=== PATIENT | female | born 1975 | race Asian ===

== ENCOUNTER 2025-10-27 19:54 | Emergency (ER) | payer OTHER, SELFPAY ==
[2025-10-27 19:59] VITALS: BP 155/86
[2025-10-27 20:49] VITALS: BMI 31.0
[2025-10-27 21:00] VITALS: BP 137/100
[2025-10-27 21:27] LABS: Hematocrit 29.1 % (37.0-47.0); Hemoglobin 9.6 g/dL (12.0-16.0); Mean Corp Hgb Conc. 33.0 g/dL (33.0-37.0); Mean Corpuscular Volume 82.9 fL (81.0-99.0); Nucleated Red Blood Cells % 0 %; Platelet Count 409 10^3/uL (130-400); Red Cell Dist. Width 16.6 % (11.5-14.5)
[2025-10-27 21:38] LABS: APTT 29.2 Sec (23.4-35.0)
[2025-10-27 21:41] LABS: INR 1.03; PT 13.3 Sec (11.4-14.6)
[2025-10-27 21:50] LABS: Troponin I < 0.012 ng/ml
[2025-10-27 22:00] VITALS: BP 127/94
[2025-10-27 22:04] LABS: ALT (SGPT) 17 U/L (0-35); AST (SGOT) 21 U/L (14-36); Albumin 3.9 g/dl (3.5-5.0); Alkaline Phosphatase 85 U/L (38-126); Blood Urea Nitrogen 9 mg/dl (7-17); Calcium 9.4 mg/dl (8.4-10.2); Carbon Dioxide 29 mmol/L (22-30); Chloride 104 mmol/L (98-107); Estimated Creatinine Clearance 102 ml/min; Glucose 100 mg/dl (70-99); Potassium 3.6 mmol/L (3.5-5.1); Sodium 136 mmol/L (135-145); Total Protein 6.6 g/dl (6.3-8.2); eGFR > 60.00
[2025-10-27 23:00] VITALS: BP 121/95
[2025-10-28] VITALS: BP 129/82
--- NOTE | 2025-10-28 00:50 | ED.GENMED ---
History of Present Illness
General
Chief Complaint: Numbness
Source: patient and spouse
Time Seen by Provider: 10/27/25 20:59
History of Present Illness
History of Present Illness:
Note:
CHIEF COMPLAINT(S)
Numbness in the upper extremities.
HISTORY OF PRESENT ILLNESS
The patient is a 50-year-old female with a history of breast cancer who presents with numbness in her face. She has undergone multiple brain surgeries and is currently receiving chemotherapy. The onset of numbness occurred upon awakening this
morning and persisted throughout the day, though it has since improved. The patient describes her usual tingling sensation in the same distribution but felt more numb today, prompting her oncologist to advise a visit to the emergency room. She
denies any fevers, vision changes, or motor weakness in the limbs. Her last chemotherapy session was two weeks ago, which she tolerated well.
The patient has a history of four brain surgeries due to metastatic breast cancer, with Dr. Rincon as the neurosurgeon and Dr. Priscilla Delarosa as the oncologist. She underwent radiation therapy one year ago and has experienced radiation necrosis in the
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 She recently returned from a trip to [place].
PAST MEDICAL AND SURGICAL HISTORY
- Breast cancer with brain metastases.
- Multiple brain surgeries.
- Radiation therapy.
- Chemotherapy.
ADDITIONAL HISTORY OBTAINED FROM SOURCE OTHER THAN THE PATIENT
Per the patient�s oncologist, she was advised to seek evaluation in the emergency department due to increased numbness.
EXTERNAL RECORDS REVIEWED
The patients records from [facility] were referenced for prior surgical history and imaging studies.
CHRONIC MEDICAL CONDITIONS SIGNIFICANTLY AFFECTING CARE
- Metastatic breast cancer.
- History of radiation necrosis.
SOCIAL HISTORY
The patient reported recent travel to [place].
PHYSICAL EXAM
General: Alert, no acute distress.
Skin: Warm, dry.
Head: Normocephalic, atraumatic.
Neck: Supple, trachea midline.
Eye, Ears, Nose, Mouth and Throat: Oral mucosa moist.
Cardiovascular: Heart regular without murmur.
Respiratory: Respirations are non-labored.
Gastrointestinal: Abdomen nondistended.
Back: Normal range of motion, Normal alignment.
Musculoskeletal: Normal range of motion, normal strength.
Neurological: Slight weakness in the left shook splicer compared to the right; otherwise, 5 out of 5 strength bilaterally. Coordination intact. Normal pzkeev-dz-[id number] test bilaterally with no ataxia. Cranial nerves II-XII are intact.
Psychiatric: Cooperative, appropriate mood & affect.
PLAN
- Central nervous system imaging to rule out stroke or recurrence of cancer.
- Review and monitor electrolyte levels.
- Collaborate with the primary oncologist for further management based on imaging and laboratory results.
- Evaluate and monitor symptoms for potential signs of dehydration or electrolyte imbalance.
DIFFERENTIAL DIAGNOSIS
The Differential Diagnosis includes, in no particular order and is not limited to:
- Stroke
- Cancer recurrence
- Radiation necrosis
- Chemotherapy-induced neuropathy
- Electrolyte imbalance
- Dehydration-related neuropathy
- Anxiety-related symptoms
- Post-surgical changes
- Peripheral neuropathy
- Medication side effects
Disposition:
SUMMARY OF ENCOUNTER
The patient is a 50-year-old female with a history of metastatic breast cancer to the brain and previous cranial surgeries, presenting with an episode of right facial numbness. The numbness represents a change from her typical tingling sensation.
Concerned, her oncologist advised an emergency department visit. A CT scan was conducted, showing no acute changes. Physical examination and imaging confirmed the patient is at her baseline with resolved symptoms, and motor strength is normal.
Laboratory tests indicated normal comprehensive metabolic panel (CMP) results but the complete blood count (CBC) showed mild anemia with hemoglobin at 9.6 g/dL. After a thorough discussion with the patient and her , we considered the
possibility of a transient ischemic attack (TIA), but her risk was deemed low. Given the sensory changes align with her usual chronic tingling pattern, the suspicion is that the episode is related to previous surgeries rather than a cerebrovascular
event.
DISPOSITION
Discharge.
ASSESSMENT
Acute on chronic sensory changes possibly related to previous surgeries rather than TIA or stroke. The patient is low risk for TIA.
PLAN
Discharge the patient with instructions to return if symptoms worsen or progress. Follow-up with doctors scheduled for the next day.
INDEPENDENT REVIEW OF LABS AND INTERPRETATION OF TESTS
My independent review of the CT scan shows no acute changes.
My independent review of the CBC indicates mild anemia with hemoglobin at 9.6 g/dL but is otherwise unremarkable.
My independent review of the CMP is normal.
PATIENT EDUCATION AND COUNSELING
The patient and were counseled on the low risk of TIA given the patient�s history and current findings. They were advised to follow up with doctors the next day and to return to the emergency department if symptoms worsen or progress.
FOLLOW-UP INSTRUCTIONS
The patient is instructed to follow up with her doctors tomorrow.
MEDICAL DECISION MAKING
-Chronic conditions affecting care: Breast cancer with brain metastases, previous cranial surgeries, radiation therapy, chemotherapy.
-Differential diagnoses include:
- Stroke
- Cancer recurrence
- Radiation necrosis
- Chemotherapy-induced neuropathy
- Electrolyte imbalance
- Dehydration-related neuropathy
- Anxiety-related symptoms
- Post-surgical changes
- Peripheral neuropathy
- Medication side effects
-Data:
Category 1
Reviewed non-emergency department records and conducted a CT scan independently interpreted as showing no acute changes.
Clinical information obtained from an independent historian, the patients .
Category 3
Management discussed with the patient and her considering risks versus benefits of admission for further work-up.
-Risk:
Consideration of Admission/Observation: Escalation of care including admission/observation was considered given the complexity and risk of the patients presenting complaint, exam findings, and/or their underlying comorbidities. However, ultimately I
feel the patient is safe for outpatient management with close follow-up. Reasoning: Work-up reassuring, does not reveal any acute life/organ threatening processes, patients symptoms well controlled upon reevaluation, reexamination is reassuring,
vitals are stable, patient agreeable with discharge, reliable for follow-up.
DIAGNOSIS
R20.0 � Disturbances of skin sensation
C79.31 � Secondary malignant neoplasm of brain
D64.9 � Anemia, unspecified
Phy Exam
Physical Exam
Physical Exam:
.
Course
Orders/Labs/Results
Orders:
Orders
10/27/25 20:08
CT Head W/o Iv Contrast Urgent
Comment:
Reason For Exam: numbness right face, hx of tumors
10/27/25 20:24
Electrocardiogram (*1) Urgent
Reason for Study: Other
Other Reason for Exam: numbness
EKG- Treatment ONCE
10/27/25 21:15
Complete Blood Count/With Diff Urgent
Comprehensive Metabolic Panel Urgent
PTT Urgent
Prothrombin Time Urgent
Troponin I Urgent
Abnormal Lab Results
10/27/25
21:15
RBC 3.51 L 10^6/uL
(4.20-5.40)
Hgb 9.6 L g/dL
(12.0-16.0)
Hct 29.1 L %
(37.0-47.0)
RDW 16.6 H %
(11.5-14.5)
Plt Count 409 H 10^3/uL
(130-400)
Absolute Monos (auto) 0.8 H 10^3/uL
(0.1-0.6)
Glucose 100 H mg/dl
(70-99)
10/27/25 21:15
10/27/25 21:15
Vital Signs
Initial and Last Documented VS:
Initial Vital Signs
Temp Pulse Resp BP Pulse Ox
98.8 F 100 18 155/86 100
10/27/25 19:59 10/27/25 19:59 10/27/25 19:59 10/27/25 19:59 10/27/25 19:59
Last Documented Vital Signs
Temp Pulse Resp BP Pulse Ox
98.8 F 82 17 129/82 95
10/27/25 19:59 10/28/25 00:15 10/28/25 00:15 10/28/25 00:00 10/28/25 00:52
*Pulse Oximetry
SaO2: 95
Oxygen Mode of Delivery: Room air
Patient hypoxic: no
*Critical Care Note
Total Time (30-74mins, 75-104mins- exclusive of procedures): Not Applicable
ED Attending Note
-
Portions of this chart may have been created with voice recognition software.� Occasional wrong word or��sound alike� substitutions may have occurred due to the inherent limitations of voice recognition software.
Discharge Plan
Departure
Patient Disposition: Home (Routine Discharge)
Date of Disposition: 10/28/25
Time of Disposition: 00:52
Patient with high blood pressure during this ER visit?: No
Discharge Problem:
Paresthesia
Instructions: Paresthesia (DC)
Referrals:
Claudette Dominguez DO [Family Provider, Family Practice]
Activity Restrictions/Additional Instructions:
Please follow-up with your doctor tomorrow as discussed. Return immediately for motor weakness of any kind, vision changes, speech changes, changes in mentation or any other concerns
Interventions
Interventions:
*Risk Screen - Suicide Last Done: 10/27/25 19:59
*ED COVID-19 Vaccine History Last Done: 10/27/25 20:49
*ED Influenza Vaccine History Last Done: 10/27/25 20:49
[facility] Risk Assessment Tool Last Done: 10/27/25 20:24
ED- Neurological Assessment Last Done: 10/27/25 21:48
Discharge Date and Time
Print Language: FRISIAN
== END 2025-10-28 01:33 | disposition home or self-care (01) ==
LOC: EMR 19:54
PROVIDERS: Emergency Medicine; EMERGENCY PHYSICIAN Emergency Medicine; FAMILY PHYSICIAN Family Medicine
DX: R20.2 Paresthesia of skin (principal); D64.9 Anemia, unspecified; C79.31 Secondary malignant neoplasm of brain; Z85.3 Personal history of malignant neoplasm of breast; Z92.21 Personal history of antineoplastic chemotherapy; Z92.3 Personal history of irradiation
CPT/HCPCS: 99284; 70450; 80053; 84484; 85025; 85610; 85730; 93005